=== PATIENT | male | born 1995 | race Caucasian/White ===

== ENCOUNTER 2022-09-11 19:18 | Emergency (ER) | payer OTHER ==
[2022-09-11] MEDS ORDERED: HYDROcod/ACET 5/325 Prepack 4 PO STA (20:40)
--- NOTE | 2022-09-11 20:42 | ED Physician Documentation ---
PD HPI HEENT - Stated complaint Stated Complaint: R EAR PX - Chief complaint Chief Complaint: Heent - History obtained from History obtained from: Patient - Additional information Additional information: 27-year-old gentleman has had about 2 days of right ear pain. He thinks he perforated his eardrum with a Q-tip and is gotten worse since then. His hearing is muffled. There is no drainage. No URI symptoms. Pain is severe. He started some Ciprodex drops but relief was not immediate. Review of Systems Constitutional: reports: Reviewed and negative Eyes: reports: Reviewed and negative Ears: reports: Loss of hearing, Ear pain Nose: reports: Reviewed and negative PD PAST MEDICAL HISTORY - Present Medications Home Medications: Ambulatory Orders Medication Instructions Recorded Confirmed HYDROcod/ACETAM 5/325 [[place] 5/325] 1 - 2 tab PO Q6H PRN #10 tablet 09/11/22 Ibuprofen [Motrin] 800 mg PO Q8H PRN #14 tablet 09/11/22 - Allergies Allergies/Adverse Reactions: Allergies Allergy/AdvReac Type Severity Reaction Status Date / Time No Known Drug Allergies Allergy Verified 09/11/22 20:11 PD ED PE NORMAL - Vitals Vital signs reviewed: Yes - General General: Alert and oriented X 3, No acute distress - HEENT HEENT: Other (He has nonocclusive but significant external otitis on the right.) - Neuro Neuro: Alert and oriented X 3, Normal speech - Psych Psych: Normal mood, Normal affect Results - Vitals Vitals: Vital Signs - 24 hr 09/11/22 20:06 Temperature 36.1 C L Heart Rate 71 Respiratory 16 Rate Blood Pressure 168/89 H O2 Saturation 98 Oxygen O2 Source Room air PD MEDICAL DECISION MAKING - ED course ED course: 27-year-old gentleman with right-sided external otitis. He is already started appropriate treatment and has plenty of Ciprodex drops which he will continue. In the meantime he needs a little time off work and pain management. Departure - Departure Disposition: 01 Home, Self Care Clinical Impression: External otitis of right ear Condition: Good Record reviewed to determine appropriate education?: Yes Instructions: ED Otitis Externa Prescriptions: Ibuprofen [Motrin] 800 mg PO Q8H PRN #14 tablet PRN Reason: PAIN &/OR FEVER HYDROcod/ACETAM 5/325 [[place] 5/325] 1 - 2 tab PO Q6H PRN #10 tablet PRN Reason: Pain Comments: You can continue the Ciprodex drops, 5 drops twice a day to the right ear for about a week. Return for new or worsening symptoms. I sent the prescription for pain meds up to [facility] in [place]. 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 I am prescribing a short course of narcotic pain medication for you. These are potentially dangerous and addictive medications that should be used carefully. These medications may constipate you. Take an duhe-jqn-szcyqpb stool softener (docusate) twice daily with plenty of water while taking these medications. If you go 24 hours without a bowel movement, take ktvg-enq-pewbnaw miralax, per package instructions. Do not drink or drive while taking these medications. If you received narcotic or sedating medications while in the emergency department, do not drive for 24 hours. Store this medication in a safe, secure place and out of reach of children. It is a violation of federal law to give or sell this medication to another person or to use in a manner other than prescribed. The ED will not refill narcotic prescriptions, including prescriptions lost or stolen. To dispose of unwanted medications: 1. [facility] [address] in [place] has a medication drop box. They accept prescription medications (in pill form) Friday through Friday 9:00 a.m. to 5:00 p.m. 2. [facility] accepts prescription medications (in pill form only) for disposal year round. Call for more information. 3. Contact the [facility] for the next [employer] sponsored prescription drug collection event. , [phone], or [phone]; Note that many narcotic pain relievers also contain Tylenol/acetaminophen. Please ensure that your total dose of acetaminophen from all sources does not exceed 3 g (3000 mg) per day. Forms: Activity restrictions
[2022-09-11 20:50] VITALS: BP 170/106
== END 2022-09-11 20:49 | disposition home or self-care (01) ==
LOC: ED 19:18
DX: H60.91 Unspecified otitis externa, right ear (principal)
CPT/HCPCS: 99282

== ENCOUNTER 2022-10-11 08:28 | Emergency (ER) | payer OTHER ==
[2022-10-11 08:36] VITALS: BP 144/79
[2022-10-11] MEDS ORDERED: predniSONE 20 MG TABLET PO STA (08:55)
--- NOTE | 2022-10-11 08:58 | ED Physician Documentation ---
PD HPI SKIN - Stated complaint Stated Complaint: RASHES ON CHEST - Chief complaint Chief Complaint: Wound - History obtained from History obtained from: Patient - Additional information Additional information: He took Viagra a little over a week ago. About the next day he developed a very itchy rash on the trunk. He has been using Aquaphor and hydrocortisone without relief. He is never had this before. The only other new exposure would be some eucalyptus scented soap which also may have caused or exacerbated this. No oral lesions. No myalgias or joint pains. No fevers. Review of Systems Constitutional: reports: Reviewed and negative Eyes: reports: Reviewed and negative Cardiac: reports: Reviewed and negative Respiratory: reports: Reviewed and negative PD PAST MEDICAL HISTORY - Present Medications Home Medications: Ambulatory Orders Medication Instructions Recorded Confirmed Clobetasol 0.05% Oint [Temovate 1 applic TOP BID #45 ml 10/11/22 0.05% Oint] Sildenafil Citrate [Viagra] 25 mg PO PRN PRN 10/11/22 10/11/22 predniSONE [Deltasone] 20 mg PO [id number] #21 tab 10/11/22 - Allergies Allergies/Adverse Reactions: Allergies Allergy/AdvReac Type Severity Reaction Status Date / Time No Known Drug Allergies Allergy Verified 10/11/22 08:36 PD ED PE NORMAL - Vitals Vital signs reviewed: Yes - General General: Alert and oriented X 3, No acute distress - Extremities Extremities: Other (There is a raised urticarial rash on the trunk that spares the face and neck, nothing on the palms or soles. Normal oropharynx.) - Neuro Neuro: Alert and oriented X 3, Normal speech Results - Vitals Vitals: Vital Signs - 24 hr 10/11/22 08:32 Temperature 36.9 C Heart Rate 68 Respiratory 18 Rate Blood Pressure 144/79 H O2 Saturation 100 Oxygen O2 Source Room air Departure - Departure Disposition: 01 Home, Self Care Clinical Impression: Dermatitis Condition: Good Record reviewed to determine appropriate education?: Yes Instructions: ED Allergic Reaction General Other Prescriptions: predniSONE [Deltasone] 20 mg PO [id number] #21 tab Clobetasol 0.05% Oint [Temovate 0.05% Oint] 1 applic TOP BID #45 ml Comments: I sent your prescriptions electronically to [facility] in [place]. You can continue Benadryl in addition to the topical and oral steroids. Return if worse. If not improving, reasonable to follow-up with a top stop attacher, the closest would be: [facility] [phone]
== END 2022-10-11 09:21 | disposition home or self-care (01) ==
LOC: ED 08:28
DX: L30.9 Dermatitis, unspecified (principal)
CPT/HCPCS: 99282; J7512

== ENCOUNTER 2023-12-05 09:38 | Emergency (ER) | payer OTHER ==
[2023-12-05 09:55] VITALS: O2SAT 100
[2023-12-05 10:51] LABS: B. PARAPERTUSSIS- RESP PCR PAN NOT DETECTED; B. PERTUSSIS- RESP PCR PANEL NOT DETECTED; C. PNEUMONIAE- RESP PCR PANEL NOT DETECTED; CORONAVIRUS 229E-RESP PCR NOT DETECTED; CORONAVIRUS HKU1-RESP PCR NOT DETECTED; CORONAVIRUS NL63-RESP PCR NOT DETECTED; CORONAVIRUS OC43-RESP PCR NOT DETECTED; HUMAN METAPNEUMOVIRUS NOT DETECTED; INFLUENZA A- RESP PCR PANEL NOT DETECTED; INFLUENZA B - RESP PCR PANEL NOT DETECTED; M. PNEUMONIAE- RESP PCR PANEL NOT DETECTED; PARAINFLUENZA VIRUS 1 NOT DETECTED; PARAINFLUENZA VIRUS 2 NOT DETECTED; PARAINFLUENZA VIRUS 3 NOT DETECTED; PARAINFLUENZA VIRUS 4 NOT DETECTED; RHINOVIRUS/ENTEROVIRUS NOT DETECTED; RSV- RESP PCR PANEL NOT DETECTED; SARS-CoV-2 -RESP PCR PANEL NOT DETECTED
[2023-12-05 12:28] LABS: RAPID STREP SCREEN Negative (Negative)
--- NOTE | 2023-12-05 12:55 | ED Physician Documentation ---
PD HPI HEENT - Stated complaint Stated Complaint: CONGESTION,COUGH,EYE IRRITATION - Chief complaint Chief Complaint: Heent - History obtained from History obtained from: Patient - Additional information Additional information: Patient is a 28-year-old male presenting for evaluation of 2 weeks of dry cough, nasal congestion, sinus pressure and also having some discharge from his eyes for the past 1 week. Patient denies any fever or chills. No chest pain or shortness of air. He recently traveled back from [place]. Initially thought his symptoms were due to allergies but they have not improved. His was also ill with similar symptoms but has been doing better since receiving antibiotics Including for conjunctivitis. Patient does not take any other medications. He has tried ydqi-pec-nowqppq DayQuil without improvement. Review of Systems Constitutional: denies: Fever Nose: reports: Congestion Throat: reports: Sore throat Cardiac: denies: Chest pain / pressure Respiratory: reports: Cough. denies: Dyspnea GI: denies: Abdominal Pain, Vomiting Neurologic: denies: Headache PD PAST MEDICAL HISTORY - Past Surgical History Past Surgical History: No - Present Medications Home Medications: Ambulatory Orders Medication Instructions Recorded Confirmed Clobetasol 0.05% Oint [Temovate 1 applic TOP BID #45 ml 10/11/22 0.05% Oint] Sildenafil Citrate [Viagra] 25 mg PO PRN PRN 10/11/22 10/11/22 predniSONE [Deltasone] 20 mg PO [id number] #21 tab 10/11/22 Amox/Clav 875/125 [Augmentin] 1 each PO Q12H #14 tablet 12/05/23 Ofloxacin 0.3% Ophth Drops 1 - 2 drops EACHEYE Q4H 7 Days #5 12/05/23 [Ocuflox 0.3% Ophth Drops] ml - Allergies Allergies/Adverse Reactions: Allergies Allergy/AdvReac Type Severity Reaction Status Date / Time No Known Drug Allergies Allergy Verified 10/11/22 08:36 - Social History Does the pt smoke?: No Smoking Status: Never smoker PD ED PE NORMAL - General General: Alert and oriented X 3, No acute distress, Well developed/nourished - HEENT HEENT: Atraumatic, PERRL, EOMI, Moist mucous membranes, Pharynx benign, Other (Bilateral maxillary sinus tenderness with no erythema or fullness) - Neck Neck: Supple, no meningeal sign - Cardiac Cardiac: RRR, Strong equal pulses - Respiratory Respiratory: No respiratory distress, Clear bilaterally - Derm Derm: Warm and dry - Neuro Neuro: Normal speech PD ED PE EXPANDED - Eyes Eyes: PERRL, EOMI, Normal eyelids, Injected conj/sclera (Bilaterally, left greater than right) Results - Vitals Vitals: Vital Signs - 24 hr 12/05/23 12/05/23 09:44 12:58 Temperature 36.7 C 36.5 C Heart Rate 76 70 Respiratory 18 16 Rate Blood Pressure 149/82 H 130/80 O2 Saturation 100 100 Oxygen O2 Source Room air - Labs Labs: Laboratory Tests 12/05/23 12/05/23 09:50 12:04 Nasal Adenovirus (PCR) NOT DETECTED Nasal B. parapertussis DNA (PCR) NOT DETECTED Nasal Coronavir 229E PCR NOT DETECTED Nasal Coronavir HKU1 PCR NOT DETECTED Nasal Coronavir NL63 PCR NOT DETECTED Nasal Coronavir OC43 PCR NOT DETECTED Nasal Enterovir/Rhinovir PCR NOT DETECTED Nasal Influenza B PCR NOT DETECTED Nasal Influenza A PCR NOT DETECTED Nasal Parainfluen 1 PCR NOT DETECTED Nasal Parainfluen 2 PCR NOT DETECTED Nasal Parainfluen 3 PCR NOT DETECTED Nasal Parainfluen 4 PCR NOT DETECTED Nasal RSV (PCR) NOT DETECTED Nasal B.pertussis DNA PCR NOT DETECTED Nasal C.pneumoniae (PCR) NOT DETECTED Farshad Human Metapneumo PCR NOT DETECTED Nasal M.pneumoniae (PCR) NOT DETECTED Nasal SARS-CoV-2 (PCR) NOT DETECTED Group A Strep Rapid Negative PD Medical Decision Making - ED course Complexity details: reviewed results, re-evaluated patient, d/w patient ED course: Patient is a 28-year-old male presenting for evaluation of sinus pressure, nasal congestion, nonproductive cough, sore throat and bilateral conjunctivitis. He is afebrile, well-appearing. Respiratory swab is negative as is strep. Patient appears to have conjunctivitis on exam. Offered chest x-ray but he declines. However due to his ongoing sinus symptoms for 2 weeks patient would like a trial of antibiotics which would be appropriate given the time course. Patient is counseled regarding treatment plan as well as concerning symptoms to return for. Departure - Departure Disposition: 01 Home, Self Care Clinical Impression: Sinusitis, Conjunctivitis Condition: Stable Instructions: ED Conjunctivitis Bacterial, ED Sinusitis Abx Tx Prescriptions: Amox/Clav 875/125 [Augmentin] 1 each PO Q12H #14 tablet Ofloxacin 0.3% Ophth Drops [Ocuflox 0.3% Ophth Drops] 1 - 2 drops EACHEYE Q4H 7 Days #5 ml Comments: I have sent prescriptions to [facility] in [place] to help you with your sinus infection as well as conjunctivitis. If you develop any worsening symptoms please return to the ER. You may also find saline rinses to be helpful in relieving her nasal congestion and drainage. Your strep test is negative. Your respiratory swab is negative for the tested viruses which includes flu, RSV and COVID. Forms: PCP List Discharge Date/Time: 12/05/23 12:58
[2023-12-05 13:08] VITALS: BP 130/80
== END 2023-12-05 12:58 | disposition home or self-care (01) ==
LOC: ED 09:38
DX: H10.9 Unspecified conjunctivitis (principal); J32.9 Chronic sinusitis, unspecified; Z11.52 Encounter for screening for COVID-19
CPT/HCPCS: 87070; 87430; 87633; 99283